=== PATIENT | female | born 1995 | race Caucasian/White ===

== ENCOUNTER 2022-06-03 03:31 | Inpatient (IN) | payer MEDICAID ==
[~2022-06-03] VITALS: Ht 165 cm; Wt 73.4 kg
[2022-06-03] VITALS (28 sets, daily range): BP systolic 115–154; BP diastolic 59–101
[~2022-06-03 03:31] MED LIST: NORG1TAB14 PO; ONDN4T PO
[2022-06-03] MEDS ORDERED: PREN-142 PO (03:51)
[2022-06-03] MEDS ORDERED: D5 LR IV SOLUTION 1,000 ML IV SCH (04:00)
[2022-06-03] MEDS ORDERED: MINERAL OIL 30 ML UDC TOP PRN (04:00)
[2022-06-03 04:30] LABS: HEMATOCRIT 40 % (35-52); HEMOGLOBIN 13.7 g/dL (11.5-16.0); MEAN CORPUSCULAR HEMOGLOBIN 32 pg (25-34); MEAN CORPUSCULAR HGB CONC 34 g/dL (32-36)
[2022-06-03 04:32] LABS: BASOPHILS # (AUTO) 0.1 10^3/uL (0.0-0.1); BASOPHILS % (AUTO) 0 % (0-10); EOSINOPHILS # (AUTO) 0.1 10^3/uL (0.0-0.3); EOSINOPHILS % (AUTO) 1 % (0-10); LYMPHOCYTES # (AUTO) 2.3 10^3/uL (1.0-4.0); LYMPHOCYTES % (AUTO) 16 % (12-44); MEAN CORPUSCULAR VOLUME 93 fL (80-99); MEAN PLATELET VOLUME 13.4 fL (9.0-12.2); MONOCYTES # (AUTO) 1.3 10^3/uL (0.0-1.0); MONOCYTES % (AUTO) 9 % (0-12); NEUTROPHILS # (AUTO) 10.6 10^3/uL (1.8-7.8); NEUTROPHILS % (AUTO) 73 % (42-75); PLATELET COUNT 205 10^3/uL (130-400); WHITE BLOOD COUNT 14.6 10^3/uL (4.3-11.0)
[2022-06-03] MEDS ORDERED: NS IV 1000 ML 1,000 ML ONE (05:53)
[2022-06-03] MEDS ORDERED: CATHETER FLUSH 10 ML SYR IV SCH ×2 (06:00→14:00)
[2022-06-03] MEDS ORDERED: NS IV 1000 ML 1,000 ML IV SCH (06:00)
[2022-06-03] MEDS ORDERED: fentaNYL 2 mcg/ml BUPIVA 0.125 100 ML ONE (07:13)
[2022-06-03] MEDS ORDERED: BUPIVACAINE 0.25% 30 ML (SENSORCAINE) VIAL ONE (07:26)
[2022-06-03] MEDS ORDERED: fentaNYL INJ 100 MCG/2 ML AMP ONE (07:26)
[2022-06-03] MEDS ORDERED: ONDANSETRON 4 MG/2 ML (SDV) Z0FRAN ONE (07:50)
[2022-06-03] MEDS ORDERED: ONDANSETRON 4 MG/2 ML (SDV) Z0FRAN IVP ONE (08:00)
[2022-06-03] MEDS ORDERED: fentaNYL 2 mcg/ml BUPIVA 0.125 100 ML EPI SCH ×2 (08:30)
[2022-06-03] MEDS ORDERED: fentaNYL INJ 100 MCG/2 ML AMP INJ ONE ×2 (08:30)
[2022-06-03] MEDS ORDERED: NALOXONE 0.4 MG/ML 1 ML (NARCAN) VIAL IV PRN ×2 (08:30)
[2022-06-03] MEDS ORDERED: ONDANSETRON 4 MG/2 ML (SDV) Z0FRAN IV PRN ×2 (08:30)
[2022-06-03] MEDS ORDERED: LACTATED RINGERS 1,000 ML IV ONE ×4 (08:30)
[2022-06-03] MEDS ORDERED: OXYTOCIN PRE-MIX DRIP 500 ML IV ONE ×2 (09:21→10:22)
[2022-06-03] MEDS ORDERED: LIDOCAINE 1% INJ 20 ML VIAL ONE (09:21)
[2022-06-03] MEDS: OXYTOCIN PRE-MIX DRIP 500 ML IV SCH ×2 (09:45→10:23)
[2022-06-03] MEDS ORDERED: MEASLES,MUMPS,RUBELLA 1 EA INJ SQ ONE (10:30)
[2022-06-03] MEDS ORDERED: BENZOCAINE/MENTHOL (DERMOPLAST) 56 ML CAN TP PRN (10:30)
--- NOTE | 2022-06-03 10:35 | History & Physical-OB ---
OB - Chief Complaint & HPI Date/Time Date of Admission: Date of Admission: Jun 03, 2022 at 03:56 Date seen by a Provider: Jun 03, 2022 Time Seen by a Provider: 09:15 Chief Complaint/History OB-Reason for Admission/Chief: Rupture of Membranes Hx : 1 Expected Date of Delivery: May 29, 2022 Gestational Age in Weeks: 40 Gestational Age in Days: 5 Other reason for admission: 26 yo G1 @ 40.5 wga here for SROM at home around 2 am. Mother is diet controlled GDM with normal Weekly BPPs and biweekly NSTs since 34 weeks History of Labs O+, Ab neg Rub NON IMMUNE HIV/RPR/HepB/C NR Abnormal GTT GBS neg Allergies and Home Medications Allergies Coded Allergies: No Known Drug Allergies (Unverified , 09/29/15) Patient Home Medication List Home Medication List Reviewed: Yes Vit No.124/Iron/FA ( Vitamin Tablet) 27 Mg Iron-800 Mcg Tablet, 1 EACH PO DAILY, (Reported) Entered as Reported by: HARRY JOHNSON on 06/03/22 0351 Last Action: New Order Discontinued Medications Norgestimate-Ethinyl Estradiol (Sprintec 28 Day Tablet) 1 Each Tablet, 1 TAB PO DAILY, (Reported) Discontinued Reason: No Longer Taking Entered as Reported by: LEVAR ALEXANDRA on 09/29/15 174 Last Action: Discontinued Ondansetron HCl (Zofran) 4 Mg Tab, 4 MG PO Q4H PRN for VOMITING Discontinued Reason: No Longer Taking Prescribed by: REBA KEBEDE MD on 09/29/15 1801 Last Action: Discontinued OB - History Hx of Present Care: Yes Ultrasounds: Normal mid trimester US Obstetrical Complications: Gestational Diabetes (diet controlled) Medical Complications: None Obstetrical History Hx : 1 Delivery History Hx Blood Disorders: No Patient Past Medical History GDM: Diet controlled Social History/Family History Alcohol Use: Denies Use Recreational Drug Use: No Smoking Cessation: Never smoker Immunizations Influenza Vaccine Up-to-Date: No; Not Current Tetanus Booster (TDap): Less than 5yrs Rubella: not immune RPR/VDRL: Negative GBS Status: Negative HBsAG: Negative OB - Admission Exam Physical Exam Vitals: Vital Signs 11/16/22 11/16/22 11/16/22 03:53 08:00 08:15 Temp 36.2 Pulse 71 Resp 18 B/P (MAP) 136/93 (107) Pulse Ox 100 O2 Delivery Room Air HEENT: NCAT Heart: Rhythm Normal Lungs: Clear Abdomen: Gravid Cervical Dilatation: 9cm Effacement: 100% Station: +2 Membranes: Ruptured Amniotic Fluid: Clear Heart Rate: 130's Accelerations: Accelerations Present Decelerations: Early Decelerations Short Term Variability: Present Nursing Home Variability: Average (6-25) Contractions on Admission: < 5 Minutes Apart Intensity: Firm Labs Laboratory Tests Test 06/03/22 04:10 06/03/22 08:08 Range/Units White Blood Count 14.6 H 4.3-11.0 10^3/uL Red Blood Count 4.33 3.80-5.11 10^6/uL Hemoglobin 13.7 11.5-16.0 g/dL Hematocrit 40 35-52 % Mean Corpuscular Volume 93 80-99 fL Mean Corpuscular Hemoglobin 32 25-34 pg Mean Corpuscular Hemoglobin Concent 34 32-36 g/dL Red Cell Distribution Width 13.4 10.0-14.5 % Platelet Count 205 130-400 10^3/uL Mean Platelet Volume 13.4 H 9.0-12.2 fL Immature Granulocyte % (Auto) 1 % Neutrophils (%) (Auto) 73 42-75 % Lymphocytes (%) (Auto) 16 12-44 % Monocytes (%) (Auto) 9 0-12 % Eosinophils (%) (Auto) 1 0-10 % Basophils (%) (Auto) 0 0-10 % Neutrophils # (Auto) 10.6 H 1.8-7.8 10^3/uL Lymphocytes # (Auto) 2.3 1.0-4.0 10^3/uL Monocytes # (Auto) 1.3 H 0.0-1.0 10^3/uL Eosinophils # (Auto) 0.1 0.0-0.3 10^3/uL Basophils # (Auto) 0.1 0.0-0.1 10^3/uL Immature Granulocyte # (Auto) 0.2 H 0.0-0.1 10^3/uL Percent Immature Platelet Fraction 15.8 H 0.0-7.6 % Glucose Level 104 70-105 MG/DL Glucometer 131 H 70-110 MG/DL OB - Assessment/Plan/Diagnosis Assessment Assessment: active labor, rupture of membranes Admission Dx Third Trimester 40 week gestation GDM diet controlled Admission Status: Inpatient Order (span 2 midnights) Reason for Inpatient Admission: Labor and post care Plan Other Plan 26 yo G1 @ 40.5 wga here with SROM at home Plan - Expectant management - Desires epidural - GBS neg Copy Copies To 1: BARTOLO CINTRON MD, HOLLY R MD Jun 03, 2022 10:35
--- NOTE | 2022-06-03 10:39 | OB Labor & Delivery Record ---
Vag Delivery Note Vag Delivery Note Date of Delivery: 06/03/22 Preoperative Diagnosis: Carla Solo is a (26 /Para / ,Gestational Age (wks)40.5 wga here for SROM at home @ 2 AM Postoperative Diagnosis: Same Surgeon: BARTOLO CINTRON MD Optical Effects Line Up Person: None Anesthesia: Epidural Delivery Type: @ 0940 Findings: Viable Male , apgars 8/9, weight 6#8, 2960 grams Lacerations: bilateral labial and 1st degree perineal Intact placenta with 3 vessel cord. No nuchal cord, body cord or shoulder dystocia Cytotec 800 mcg placed for hemorrhage prophylaxis Estimated Blood Loss: 150 ml Complications: None Condition: Stable Description of Procedure: The patient is a 26 year old female who presented in active labor after SROM clear at home. She was admitted and informed consent was obtained. Her labor course was unremarkable. She progressed to complete dilatation and began to push. She was then set up for delivery. The infant's head was delivered atraumatically in the NAYELY position. The shoulders and remainder of the infant's body were then delivered without difficulty. Vigorous infant delivered. Upon delivery, the head was held below the level of the perineum and the mouth and nares were bulb suct ioned. The cord was doubly clamped and cut by friend of mother after 3 min delay and the was attended to by the pediatric staff on maternal abdomen. An intact placenta with 3-vessel cord delivered via Beatrice @ 0945 and there was found to be minimal bleeding.~ Vigorous fundal massage was performed and the fundus was found to be firm. IV oxytocin was given. Examination of the vagina and perineum revealed bilateral labial and 1st degree perineal laceration repaired in the usual fashion with 3-0 vicryl suture. Following the repair, sponge, instrument and needle counts were correct. Mom and baby were both in stable condition in the labor suite. Vitals - Labs Vital Signs - I&O Vital Signs Date Time Temp Pulse Resp B/P (MAP) Pulse Ox O2 Delivery O2 Flow Rate FiO2 06/03/22 08:15 71 18 136/93 (107) 100 06/03/22 08:06 67 18 126/91 (103) 100 06/03/22 08:03 78 18 136/93 (107) 100 06/03/22 08:00 36.2 62 18 139/91 (107) 100 11/16/22 07:55 63 18 129/86 (100) 100 06/03/22 07:45 74 18 124/94 (104) 100 06/03/22 07:35 75 18 137/87 (104) 100 06/03/22 07:30 74 18 144/101 (115) 98 06/03/22 06:03 36.6 06/03/22 03:53 36.6 90 18 98 Room Air I & O 06/03/22 07:00 Intake Total 1000 ml Balance 1000 ml Labs Laboratory Tests 06/03/22 04:10: White Blood Count 14.6H, Red Blood Count 4.33, Hemoglobin 13.7, Hematocrit 40, Mean Corpuscular Volume 93, Mean Corpuscular Hemoglobin 32, Mean Corpuscular Hemoglobin Concent 34, Red Cell Distribution Width 13.4, Platelet Count 205, Mean Platelet Volume 13.4H, Immature Granulocyte % (Auto) 1, Neutrophils (%) (Auto) 73, Lymphocytes (%) (Auto) 16, Monocytes (%) (Auto) 9, Eosinophils (%) (Auto) 1, Basophils (%) (Auto) 0, Neutrophils # (Auto) 10.6H, Lymphocytes # (Auto) 2.3, Monocytes # (Auto) 1.3H, Eosinophils # (Auto) 0.1, Basophils # (Auto) 0.1, Immature Granulocyte # (Auto) 0.2H, Percent Immature Platelet Fraction 15.8H, Glucose Level 104 06/03/22 08:08: Glucometer 131H BARTOLO CINTRON MD Jun 03, 2022 10:39
[2022-06-03] MEDS: WITCH HAZEL(TUCKS) 40 EA JAR TOP PRN (11:22)
[2022-06-03] MEDS: IBUPROFEN 600 MG (MOTRIN) TAB PO SCH ×3 (11:22→23:33)
[2022-06-03] MEDS: ACETAMINOPHEN 500 MG TAB (TYLENOL) PO SCH ×3 (11:22→23:33)
[2022-06-03] MEDS: DOCUSATE SODIUM 100 MG (COLACE) CAP PO SCH (20:14)
[2022-06-04 00:22] VITALS: BP 123/773
[2022-06-04] MEDS: DOCUSATE SODIUM 100 MG (COLACE) CAP PO SCH ×2 (00:22→10:37)
[2022-06-04 05:30] LABS: BASOPHILS % (AUTO) 0 % (0-10); EOSINOPHILS % (AUTO) 0 % (0-10); HEMATOCRIT 31 % (35-52); HEMOGLOBIN 10.8 g/dL (11.5-16.0); LYMPHOCYTES # (AUTO) 1.8 10^3/uL (1.0-4.0); LYMPHOCYTES % (AUTO) 12 % (12-44); MEAN CORPUSCULAR HEMOGLOBIN 32 pg (25-34); MEAN CORPUSCULAR HGB CONC 35 g/dL (32-36); MEAN CORPUSCULAR VOLUME 93 fL (80-99); MEAN PLATELET VOLUME 13.2 fL (9.0-12.2); MONOCYTES # (AUTO) 1.1 10^3/uL (0.0-1.0); MONOCYTES % (AUTO) 7 % (0-12); NEUTROPHILS % (AUTO) 80 % (42-75); PLATELET COUNT 166 10^3/uL (130-400); WHITE BLOOD COUNT 15.1 10^3/uL (4.3-11.0)
[2022-06-04] MEDS: IBUPROFEN 600 MG (MOTRIN) TAB PO SCH ×2 (05:37→10:37)
[2022-06-04 05:38] VITALS: BP 112/77
[2022-06-04] MEDS: ACETAMINOPHEN 500 MG TAB (TYLENOL) PO SCH ×2 (05:38→10:38)
[2022-06-04] MEDS ORDERED: FERROUS SULF 325 MG (IRON) TAB PO SCH (09:00)
[2022-06-04] MEDS ORDERED: IBUP-844 PO (09:21)
--- NOTE | 2022-06-04 09:21 | Short Stay Summary ---
Discharge Summary Hospital Course Final Diagnosis: s/p Spontaneous vaginal delivery at 40w5d Hospital Course Date of Admission: Jun 03, 2022 at 03:56 Admission Diagnosis : 1. 26 yo G1 @ 40.5 wga here with SROM at home 2. diet controlled gestational diabetes 3. rubella non-immune Family Physician/Provider: Ana Way MD Date of Discharge: 06/04/22 Discharge Diagnosis: same s/p with bilateral labial and first degree perineal laceration Hospital Course: Routine care. Labs and Pending Lab Test: Laboratory Tests 06/03/22 10:50: Glucometer 111H 06/04/22 05:07: White Blood Count 15.1H, Red Blood Count 3.36L, Hemoglobin 10.8#L, Hematocrit 31L, Mean Corpuscular Volume 93, Mean Corpuscular Hemoglobin 32, Mean Corpuscular Hemoglobin Concent 35, Red Cell Distribution Width 13.6, Platelet Count 166, Mean Platelet Volume 13.2H, Immature Granulocyte % (Auto) 1, Neutrophils (%) (Auto) 80H, Lymphocytes (%) (Auto) 12, Monocytes (%) (Auto) 7, Eosinophils (%) (Auto) 0, Basophils (%) (Auto) 0, Neutrophils # (Auto) 12.0H, Lymphocytes # (Auto) 1.8, Monocytes # (Auto) 1.1H, Eosinophils # (Auto) 0.0, Basophils # (Auto) 0.0, Immature Granulocyte # (Auto) 0.1 Home Meds Active Reported Vitamin Tablet ( Vit No.124/Iron/FA) 27 Mg Iron-800 Mcg Tablet 1 Each PO DAILY Assessment/Pt Instructions Follow up with Dr. Way in 6 weeks. Discharge Instructions Discharge Diet: No Restrictions Discharge Physical Examination General Appearance: Alert, Oriented X3, Cooperative Psych/Mental Status: Mood NL Allergies: Coded Allergies: No Known Drug Allergies (Unverified , 09/29/15) Discharge Summary Date of Admission Jun 03, 2022 at 03:56 Date of Discharge PETRA PATTON DO Jun 04, 2022 09:21
[2022-06-04 10:30] VITALS: BP 117/74
[2022-06-04] MEDS: WITCH HAZEL(TUCKS) 40 EA JAR TOP PRN (11:01)
--- NOTE | 2022-06-05 14:47 | Anesthesia-Regional Post-Op ---
Regional Patient Condition Mental Status: Alert, Oriented x3 Circulation: Same as Pre-Op Headache: Absent Sensation: Full Recovery Motor Block: Absent Post Op Complications Complications None Follow Up Care/Instructions Patient Instructions None needed. Anesthesia/Patient Condition Patient was seen yesterday at approximately 1100 and she was doing well, no complaints, stable vital signs, no apparent adverse anesthesia problems. No complications reported per nursing. DIAMANTE WALKER DO Jun 05, 2022 14:47
== END 2022-06-04 12:25 | disposition home or self-care (01) | DRG 807 ==
LOC: WSo 03:31 → LDRP 03:32 → WSo 03:55 → LDRP 03:56
PROVIDERS: ADMIT Family Medicine; ATTEND Family Medicine
PROC: 10E0XZZ Delivery of Products of Conception, External Approach (ICD-10-PCS; principal; 2022-06-03)
PROC: 0HQ9XZZ Repair Perineum Skin, External Approach (ICD-10-PCS; 2022-06-03)
PROC: 0UQMXZZ Repair Vulva, External Approach (ICD-10-PCS; 2022-06-03)
DX: O48.0 Post-term pregnancy (principal); Z37.0 Single live birth; O24.420 Gestational diabetes mellitus in childbirth, diet controlled; Z3A.40 40 weeks gestation of pregnancy; O70.0 First degree perineal laceration during delivery
CPT/HCPCS: 36415; 82947; 85025; 86780; 86850; 86900; 86901; 99212